=== PATIENT | female | born 1980 | race Caucasian/White ===

== ENCOUNTER 2020-08-06 13:29 | Inpatient (IN) | payer BC, SELFPAY ==
[~2020-08-06] VITALS: Ht 162.6 cm; Wt 66.2 kg
[2020-08-06] MEDS ORDERED: PNV91TAB10 PO (13:55)
[2020-08-06] MEDS ORDERED: METHYLERGONOVINE 0.2 MG/ML AMP IM PRN (14:15)
[2020-08-06] MEDS ORDERED: CARBOPROST 250 MCG/ML AMP IM PRN (14:15)
[2020-08-06 14:41] LABS: BASOPHILS % (AUTO) 0.3 % (0.0-2.0); EOSINOPHILS % (AUTO) 0.5 % (0.0-4.0); HEMATOCRIT 39.1 % (36-48); HEMOGLOBIN 13.3 g/dL (12.0-16.0); LYMPHOCYTES # (AUTO) 1.5 K/uL (2.5-16.5); MEAN CORPUSCULAR HEMOGLOBIN 32 pg (27-31); MEAN CORPUSCULAR HGB CONC 34 g/dL (33-37); MEAN CORPUSCULAR VOLUME 93.1 fL (80-94); MONOCYTES # (AUTO) 0.7 K/uL (0.8-1.0); MONOCYTES % (AUTO) 7.6 % (1.7-9.3); NEUTROPHILS # (AUTO) 6.4 K/uL (1.8-7.7); NEUTROPHILS % (AUTO) 74.6 % (42.2-75.2); PLATELET COUNT (AUTO) 187 K/uL (140-450); RED CELL DISTRIBUTION WIDTH 14.2 % (11.6-13.7); WHITE BLOOD COUNT (AUTO) 8.6 K/uL (4.8-10.8)
[2020-08-06 14:47] LABS: APPEARANCE,URINE CLEAR (CLEAR); BILIRUBIN,URINE NEGATIVE (NEGATIVE); BLOOD, URINE NEGATIVE (NEGATIVE); COLOR,URINE YELLOW (YELLOW); LEUKOCYTE ESTERASE ,URINE 2+ (NEGATIVE); NITRITE, URINE NEGATIVE (NEGATIVE); UGLUCOSE NEGATIVE (NEGATIVE)
[2020-08-06 14:58] LABS: ALBUMIN 2.8 g/dL (3.4-5.0); ANION GAP 10.7 (8-16); CARBON DIOXIDE 26.1 mmol/L (21-32); CREATININE 0.6 mg/dL (0.6-1.3); POTASSIUM 3.8 mmol/L (3.5-5.1); TOTAL BILIRUBIN 0.1 mg/dL (0.0-1.0)
[2020-08-06 15:26] LABS: RBC,URINE 0-5 /HPF (0-5); WBC,URINE 16-25 (MOD) /HPF (0-5)
[2020-08-06] MEDS: LACTATED RINGERS 1,000 ML IV SCH ×2 (15:28→22:10)
[2020-08-06] MEDS ORDERED: MISOPROSTOL 25 MCG TAB VG PRN (15:30)
--- NOTE | 2020-08-06 16:51 | NUR ---
PATIENT HAS BEEN SCREENED AND CATEGORIZED LOW NUTRITION RISK. PATIENT WILL BE SEEN WITHIN 7 DAYS OF ADMISSION. 08/13/[address]
[2020-08-06] MEDS ORDERED: OXYTOCIN 20 UNITS in LACTATED RINGERS 1,000 ML IV SCH (17:20)
[2020-08-06] MEDS ORDERED: fentaNYL citrate 0.05 MG/ML VIAL IVP PRN (21:50)
[2020-08-06] MEDS ORDERED: PROMETHAZINE 25 MG/ML VIAL IVP PRN (21:50)
[2020-08-06] MEDS ORDERED: OXYTOCIN 20 UNITS/LR PREMIX 1,000 ML IV ONE (22:42)
[2020-08-07] MEDS ORDERED: BENZOCAINE/MENTHOL 20%-0.5% 60 GM CAN TP PRN (00:25)
[2020-08-07] MEDS ORDERED: bisacodyL 10 MG SUPP RC PRN (00:25)
[2020-08-07] MEDS ORDERED: TEMAZEPAM 15 MG CAP PO PRN (00:25)
[2020-08-07] MEDS ORDERED: oxyCODONE/APAP 5/325 MG 1 TAB TAB PO PRN (00:25)
[2020-08-07] MEDS ORDERED: METHYLERGONOVINE 0.2 MG/ML AMP IM PRN (00:25)
[2020-08-07] MEDS ORDERED: OXYTOCIN 10 UNITS/ML VIAL IM PRN (00:25)
[2020-08-07] MEDS ORDERED: METHYLERGONOVINE 0.2 MG TAB PO PRN (00:25)
[2020-08-07] MEDS ORDERED: HYDROcodone/APAP 5/325 MG 1 TAB TAB PO PRN (00:25)
[2020-08-07] MEDS: IBUPROFEN 800 MG TAB PO PRN ×2 (06:54→19:39)
[2020-08-07] MEDS ORDERED: DOCUSATE SOD/SENNA 50/8.6 MG 1 TAB PO SCH (21:00)
[2020-08-08 06:12] LABS: HEMATOCRIT 36.7 % (36-48); HEMOGLOBIN 12.4 g/dL (12.0-16.0)
== END 2020-08-08 14:40 | disposition home or self-care (01) | DRG 806 ==
LOC: MFCC 13:29 → OBSVTOIN 17:21 → MFCC 08-07 02:15
PROVIDERS: ADMIT Obstetrics & Gynecology; ATTEND Obstetrics & Gynecology
PROC: 10D07Z6 Extraction of Products of Conception, Vacuum, Via Natural or Artificial Opening (ICD-10-PCS; principal; 2020-08-07)
PROC: 3E0P7VZ Introduction of Hormone into Female Reproductive, Via Natural or Artificial Opening (ICD-10-PCS; 2020-08-07)
DX: O36.8130 Decreased fetal movements, third trimester, not applicable or unspecified (principal); O41.03X0 Oligohydramnios, third trimester, not applicable or unspecified; Z37.0 Single live birth; O77.0 Labor and delivery complicated by meconium in amniotic fluid; Z3A.39 39 weeks gestation of pregnancy; O75.81 Maternal exhaustion complicating labor and delivery; Z20.828 Contact with and (suspected) exposure to other viral communicable diseases
CPT/HCPCS: 36415; 59200; 80053; 81001; 85018; 85025; 86592; 86886; 86900; 86901; 87086; G0378; J2550; J2590; J3010